=== PATIENT | female | born 2005 | race Caucasian/White ===

== ENCOUNTER 2025-05-22 19:24 | Observation (INO) ==
--- NOTE | 2025-05-22 20:08 | Emergency Department Note ---
Impression & Plan Chest pain, Hypokalemia, Elevated troponin, Exposure to carbon monoxide ED Provider Note NAME: GEORGIE JOHNSON AGE: 19 SEX: F : 2005 ARRIVES VIA: Walk-In INFORMANT: Patient ED PROVIDER(S): Aleksandr Harper DO CHIEF COMPLAINT: Carbon monoxide exposure HPI: Patient is a 19-year-old female who was at the [facility] for an hour. They were notified after the car monoxide alarm went out by the fire [place] that it was significantly elevated in house. She notes that she was having a headache and some chest pain and feels a little shaky. She denies any belly pain. No nausea, vomiting, or diarrhea. Denies any history of diabetes, hypertension, hyperlipidemia, CAD or sudden . No recent trips or travel, swelling of the calves coughing up blood or history of blood clots. ADDITIONAL HISTORY OBTAINED: Per HPI Chronic Medical/Social Conditions Affecting Care: Per HPI PAST MEDICAL HISTORY:See Below PAST SURGICAL HISTORY:See Below FAMILY HISTORY:See Below SOCIAL HISTORY:See Below HOME MEDICATIONS:See Below ALLERGIES:See Below VITALS:See Below PHYSICAL EXAMINATION: GENERAL: Sitting up in bed, alert, well appearing, well nourished, no distress, non-toxic EYE EXAM: normal conjunctiva. PERRL and EOM's grossly intact. OROPHARYNX: no exudate, no erythema, lips, buccal mucosa, and tongue normal and mucous membranes are moist NECK: supple, no nuchal rigidity, no adenopathy, non-tender LUNGS: Clear to auscultation. Normal chest wall mechanics HEART: no murmurs, S1 normal and S2 normal ABDOMEN: abdomen soft, non-tender, normo-active bowel sounds, no masses, no rebound or guarding. BACK: Back is symmetrical on inspection and there is no deformity, no midline tenderness, no CVA tenderness. SKIN: no rashes and no bruising UPPER EXTREMITIES: upper extremities are grossly normal. LOWER EXTREMITIES: No pitting edema. Calves are equal bilaterally NEURO EXAM: Normal sensorium, cranial nerves II-XII grossly intact, normal speech, no gross weakness of arms, no gross weakness of legs. MEDICAL DECISION MAKING: Patient is a 19-year-old female who presents ER for the above-stated complaint. IV was established and blood work was obtained. She was exposed to carbon monoxide and consequently referred in. IV was established blood work is obtained. Labs show no significant leukocytosis or anemia. Upon arrival she was placed on a nonrebreather. D-dimer was negative. Carboxyhemoglobin was only 2.5. CMP with an elevated troponin at 237. This trended down to 212. Lipase and LFTs were unremarkable. She is pain-free on repeat evaluation. EKG did show some nonspecific ST wave changes in the inferior leads. With the travel the dimer was obtained and was negative. She had no exertional activities today other than walking on the treadmill for an hour which she typically does. She never gets any exertional chest pain. She was recently in [place] at altitude and just flew back. I question if the elevated troponin is secondary to the strain from the altitude. I doubt that this is secondary to the carboxyhemoglobin as there were close to 20 people that presented and no one had an elevated carbon monoxide level. I do not think this is consistent with ACS. Did recommend admission and updated mom and discussed the case with the hospitalist for further evaluation management treatment. Patient was given IV fluids. Consults/Care Managements Discussions: Per [facility] Triage Nursing notes reviewed. Limited review of prior medical records performed Vital Signs: reviewed and remarkable for no significant abnormalities Differential diagnosis: Cardiac ischemia, aortic dissection, pulmonary embolism, pneumothorax, pneumonia, pericarditis, myocarditis, esophageal rupture, GERD, cholecystitis, pancreatitis, musculoskeletal, as well as other pathologies. ER treatment provided: See below Diagnostics interpreted by me include EKG and cardiac monitoring as listed below: -Cardiac Monitoring: An order was placed for continuous cardiac monitoring. The monitor shows a rate of 80 with sinus rhythm. -ECG: Sinus rhythm rate 88 Normal axis No PVCs Nonspecific ST wave changes in the inferior leads EKG #2 Sinus rhythm rate of 78 Right axis No PVCs QTc [address] wave changes in the inferior leads -Laboratory studies:Interpreted by me as stated above in MDM and shown below. Imaging studies: Xrays: As interpreted by me: Portable AP upright 1 view of the chest shows no focal M-Trate CTs show: none Procedures:none Critical Care: None Past Med/Surg History Problem List (Updated 05/23/25 @ 00:19 by Aleksandr Harper DO) Exposure to carbon monoxide (Acute) Chest pain (Acute) Elevated troponin (Acute) Hypokalemia (Acute) Carbon monoxide poisoning Medical History No pertinent past medical history Social History Smoking Status: Current every day smoker Tobacco Type: E-cigarettes / Vaping Preferred Language: Nepali Feels Safe at Home: Yes Allergies Allergies Allergy/AdvReac Type Severity Reaction Status Date / Time No Known Allergies Allergy Unverified 05/22/25 20:41 Home Meds Home Medications Medication Instructions Recorded Confirmed No Known Home Medications 05/22/25 05/22/25 Results & Data (ED) Vital Signs Vital Signs - 24 hr 05/22/25 19:33 05/22/25 21:44 05/22/25 21:45 Temperature 36.7 C Temperature Source Temporal Artery Scan Pulse Rate 86 Pulse Rate [Apical] 73 Respiratory Rate 16 20 Respiratory Effort / Characteristics Non-Labored Spontaneous Respiratory Depth Normal Respiratory Pattern Regular Blood Pressure 121/85 Blood Pressure [Right Arm] 116/56 L Blood Pressure Mean 97 Blood Pressure Mean [Right Arm] 76 Pulse Oximetry 98 98 99 Oxygen Delivery Method Room Air Room Air Room Air Oxygen Flow Rate Sepsis Recent Fever Within 48 Hours No Sepsis New/Unexplained Change in Mental Status N/A Sepsis Action Taken by Nursing No Action Required 05/22/25 21:45 05/22/25 22:18 05/22/25 22:45 Temperature Temperature Source Pulse Rate 82 67 Pulse Rate [Apical] Respiratory Rate 20 Respiratory Effort / Characteristics Respiratory Depth Respiratory Pattern Blood Pressure 105/77 Blood Pressure [Right Arm] Blood Pressure Mean 89 Blood Pressure Mean [Right Arm] Pulse Oximetry 99 99 Oxygen Delivery Method Room Air Room Air Oxygen Flow Rate 0 Sepsis Recent Fever Within 48 Hours Sepsis New/Unexplained Change in Mental Status Sepsis Action Taken by Nursing Laboratory Data 05/22/25 20:15 05/22/25 20:15 Lab Results 05/22/25 05/22/25 Range/Units 20:15 22:00 WBC 8.64 (4.8-10.8) K/ul RBC 4.28 (4.20-5.40) M/uL Hgb 12.7 (12.0-16.0) g/dl Hct 38.1 (37.0-47.0) % MCV 89.0 (80.0-100.0) fL MCH 29.7 (25.0-34.0) pg MCHC 33.3 (32.0-36.0) g/dL RDW Std Deviation 40.2 (36.4-46.3) fL RDW Coeff of Jory 12.4 (11.5-14.5) % Plt Count 297 (130-400) K/uL MPV 9.2 L (9.4-12.4) fL Immature Gran % (Auto) 0.2 % Neut % (Auto) 64.8 % Lymph % (Auto) 28.0 % [place] % (Auto) 6.1 % Eos % (Auto) 0.2 % Baso % (Auto) 0.7 % Neut # (Auto) 5.59 (1.40-6.50) K/uL Lymph # (Auto) 2.42 (1.20-3.40) K/uL [place] # (Auto) 0.53 (0.11-0.59) K/uL Eos # (Auto) 0.02 (0.00-0.50) K/uL Baso # (Auto) 0.06 (0.00-0.20) K/uL Immature Gran # (Auto) 0.02 (0.01-0.20) K/uL D-Dimer 340 (0-500) ug/L FEU Carboxyhemoglobin 2.5 % THgb Sodium 139 (136-145) mmol/L Potassium 3.2 L (3.5-5.1) mmol/L Chloride 102 (98-107) mmol/L Carbon Dioxide 28 (21-32) mmol/L Anion Gap 9 (3-11) BUN 16 (6-23) mg/dl Creatinine 0.93 (0.6-1.2) mg/dl Est Cr Clr Drug Dosing 84.0 ml/min eGFR 90.80 BUN/Creatinine Ratio 17.2 (10-20) Glucose 101 H (70-99(Fasting)) mg/dl Calcium 10.0 (8.6-10.3) mg/dl Total Bilirubin 0.5 (0.2-1.0) mg/dl AST 24 (13-39) U/L ALT 14 (7-52) U/L Alkaline Phosphatase 40 (34-104) U/L Total Creatine Kinase 133 (26-192) U/L Troponin I High Sens 237.6 H* 212.5 H* (0-14) pg/ml Total Protein 7.8 (6.0-8.3) gm/dl Albumin 4.7 (3.4-5.0) gm/dl Globulin 3.1 (2.5-4.0) gm/dl Albumin/Globulin Ratio 1.5 (0.9-2) Lipase 24 (11-82) U/L Administered Medications Discontinued Medications Sodium Chloride (Nss) 1,000 mls @ 999 mls/hr IV .Q1H1M ONE Stop: 05/22/25 22:47 Last Infusion: 05/22/25 23:07 Dose: Infused Documented By: Admin: 05/22/25 22:06 Dose: 999 mls/hr Documented By: NATHEN Potassium Chloride (Potassium Chloride Crtab 20 Meq Tabcr) 40 meq PO NOW STA Stop: 05/22/25 23:09 Last Admin: 05/22/25 23:37 Dose: 40 meq Documented By: NATHEN Imaging Data Radiologist's Impression: Chest X-Ray 05/22/25 20:04 Exam(s): XR CXR 1 VIEW EXAM: XR Chest, 1 View CLINICAL HISTORY: Chest pain, nonspecific. TECHNIQUE: Frontal view of the chest. COMPARISON: No relevant prior studies available. FINDINGS: Lungs: Unremarkable. No consolidation. The pulmonary vasculature demonstrates no significant radiographic abnormality. Pleural space: Unremarkable. No pneumothorax. No large pleural effusion. Heart: Unremarkable. No cardiomegaly. Mediastinum: No significant abnormality identified. The trachea is midline. Bones/joints: Unremarkable. No acute fracture. IMPRESSION: Normal chest radiograph. Electronically signed by: Lexx St MD 05/22/25 20:54 PM Discharge Plan Visit Data Chief Complaint: Carbon Monoxide Exposure Stated Complaint: CO EXPOSURE ED Provider: Aleksandr Harper Discharge Problem: Chest pain, Hypokalemia, Elevated troponin, Exposure to carbon monoxide Condition: Fair Forms Stand Alone Forms: [employer]glass Prescriptions Prescriptions: No Action No Known Home Medications Referrals Referrals: [facility] [Primary Care Provider] - Discharge Problem: Chest pain Qualifiers: Chest pain type: unspecified Qualified Code(s): R07.9 - Chest pain, unspecified
[2025-05-22 20:34] LABS: Hematocrit (blood only) 38.1 % (37.0-47.0); Hemoglobin 12.7 g/dl (12.0-16.0); Immature Granulocytes # (auto) 0.02 K/uL (0.01-0.20); Immature Granulocytes % (auto) 0.2 %; Mean Corpuscular Hemoglobin 29.7 pg (25.0-34.0); Mean Corpuscular Volume 89.0 fL (80.0-100.0); Platelet Count 297 K/uL (130-400); RDW Standard Deviation 40.2 fL (36.4-46.3); Red Blood Count 4.28 M/uL (4.20-5.40); White Blood Count 8.64 K/ul (4.8-10.8)
[2025-05-22 20:52] LABS: Alanine Aminotransferase 14.0 U/L (7-52); Albumin Globulin Ratio 1.5 (0.9-2); Albumin Level 4.7 gm/dl (3.4-5.0); Alkaline Phosphatase 40.0 U/L (34-104); Anion Gap 9.0 (3-11); Bilirubin,Total 0.5 mg/dl (0.2-1.0); Blood Urea Nitrogen 16.0 mg/dl (6-23); Calcium 10.0 mg/dl (8.6-10.3); Carbon Dioxide 28.0 mmol/L (21-32); Chloride 102.0 mmol/L (98-107); Creatinine Clr Calc Pharmacy 84.0 ml/min; Globulin 3.1 gm/dl (2.5-4.0); Glucose 101.0 mg/dl (70-99(Fasting)); Lipase 24.0 U/L (11-82); Potassium 3.2 mmol/L (3.5-5.1); Sodium 139.0 mmol/L (136-145); Total Protein 7.8 gm/dl (6.0-8.3)
--- NOTE | 2025-05-22 20:55 | XRay Report ---
Exam(s): XR CXR 1 VIEW EXAM: XR Chest, 1 View CLINICAL HISTORY: Chest pain, nonspecific. TECHNIQUE: Frontal view of the chest. COMPARISON: No relevant prior studies available. FINDINGS: Lungs: Unremarkable. No consolidation. The pulmonary vasculature demonstrates no significant radiographic abnormality. Pleural space: Unremarkable. No pneumothorax. No large pleural effusion. Heart: Unremarkable. No cardiomegaly. Mediastinum: No significant abnormality identified. The trachea is midline. Bones/joints: Unremarkable. No acute fracture. IMPRESSION: Normal chest radiograph. Electronically signed by: Lexx St MD 05/22/25 20:54 PM
[2025-05-22] MEDS: SODIUM CHLORIDE 0.9% 1,000 ML IV ONE (22:06)
[2025-05-22 22:14] LABS: Creatine Kinase 133.0 U/L (26-192)
--- NOTE | 2025-05-22 23:17 | History & Physical Report ---
Date of Service May 22, 2025 Assessment & Plan (1) Carbon monoxide poisoning: (2) Elevated troponin: (3) Hypokalemia: Plan 19 yo F admitted with carbon monoxide poisoning #Severe carbon monoxide poisoning with elevated troponin - Obs to med tele - Regular diet - VS per unit protocol - Serial HS trop, next due at 0400 - EKG in AM and PRN CP - TTE - Treat with HFNC O2 overnight to increase clearance of CO #Hypokalemia - K+ 3.2, replacement ordered - Trend level in AM VTE ppx - ambulation Above plan of care has been d/w Dr. Alvarado who will also see and evaluate this patient. Further orders will be implemented as clinically warranted. History of Present Illness Chief Complaint: Carbon monoxide poisoning Primary Care Provider: [facility] Mindy is a 19 yo F college student without any pmhx who presents for evaluation following carbon monoxide exposure. She reportedly was at a sorority and was there for about an hour. She began having a headache and some chest discomfort and was feeling shaky. They were informed by the fire department that the carbon monoxide levels were significantly elevated in the 500s and the patient was subsequently referred to the hospital for evaluation. She was treated transiently with O2. Her work up demonstrated an elevated HS trop of 237. EKG was NSR w/o acute ST-T wave changes. Repeat HS trop remains elevated at 212. She is currently chest pain free but due to her persistently elevated HS trop she has been referred to the hospital medicine team for admission. Allergies Allergy/AdvReac Type Severity Reaction Status Date / Time No Known Allergies Allergy Unverified 05/22/25 20:41 Home Medications Medication Instructions Recorded Confirmed Type No Known Home Medications 05/22/25 05/22/25 History Past Med/Surg History Problem List (Updated 05/23/25 @ 00:19 by Aleksandr Harper DO) Exposure to carbon monoxide (Acute) Chest pain (Acute) Elevated troponin (Acute) Hypokalemia (Acute) Carbon monoxide poisoning Medical History No pertinent past medical history Social History Smoking Status: Current every day smoker Tobacco Type: E-cigarettes / Vaping Hx Alcohol Use: Yes Hx Substance Use: No Preferred Language: Venezuelan Communication Ability: Effective Inclusion Manager Required: No Beliefs That Will Affect Care: None Current Living Situation: Other Current Living Situation Comment: lives with friends in apartment Other Information That Helps Us Care for You: No Feels Safe at Home: Yes Safety Concerns: Feels Safe At This Time Assistive Devices: None Review of Systems 2 Review of Systems: All systems reviewed and are unremarkable except as noted in HPI and below. Denies fever, chills, fatigue, nasal congestion, sore throat, cough, shortness of breath, palpitations, orthopnea, PND, abdominal pain, n/v/d, constipation, dysuria, hematuria, frequency, back pain, joint pain or swelling, easy bruising or bleeding, skin lesions or rashes. Physical Exam 2 Physical Exam: GENERAL: 19 yo Well-developed, well-nourished WF. No distress. EYES: EOMI. PERRLA. Anicteric. HENT: Moist mucous membranes. No cervical lymphadenopathy. LUNGS: Clear to auscultation bilaterally. No accessory muscle use. No W/R/R. CARDIOVASCULAR: Regular rate and rhythm. No M/G/R. No JVD. ABDOMEN: Soft, non-tender and non-distended. No palpable masses. Bowel sounds normoactive x 4 quad. EXTREMITIES: No edema. Non-tender. Peripheral pulses +2/4. NEUROLOGIC: A&O x3. No focal neurological deficits. CN II-XII grossly intact. PSYCHIATRIC: Cooperative. Appropriate mood and affect. SKIN: Warm, dry, intact. No rashes or lesions. Results & Data Results & Data Vital Signs (Past 12 Hours) Vital Signs Temp Pulse Pulse Resp BP BP Pulse Ox 05/22/25 22:18 82 05/22/25 21:45 99 05/22/25 21:45 99 05/22/25 21:44 73 20 116/56 L 98 05/22/25 19:33 36.7 C 86 16 121/85 98 O2 Del Method O2 Flow Rate 05/22/25 22:18 05/22/25 21:45 Room Air 0 05/22/25 21:45 Room Air 05/22/25 21:44 Room Air 05/22/25 19:33 Room Air Laboratory Results 05/22/25 20:15 05/22/25 20:15 HS trop 237 --> 212 Diagnostic Findings Chest X-Ray 05/22/25 20:04 Exam(s): XR CXR 1 VIEW EXAM: XR Chest, 1 View CLINICAL HISTORY: Chest pain, nonspecific. TECHNIQUE: Frontal view of the chest. COMPARISON: No relevant prior studies available. FINDINGS: Lungs: Unremarkable. No consolidation. The pulmonary vasculature demonstrates no significant radiographic abnormality. Pleural space: Unremarkable. No pneumothorax. No large pleural effusion. Heart: Unremarkable. No cardiomegaly. Mediastinum: No significant abnormality identified. The trachea is midline. Bones/joints: Unremarkable. No acute fracture. IMPRESSION: Normal chest radiograph. Electronically signed by: Lexx St MD 05/22/25 20:54 PM ECG Additional Comments: NSR w/o acute ST-T wave changes Code Status & VTE Plan Code Status Full code VTE Prophylaxis Plan VTE Prophylaxis will be ordered: No Reason for no VTE drug order: Treatment not indicated Supervising Physician Co-Signing Physician Notes Attending addendum: I have physically seen this patient, have supervised the MYLES's activities, and agree with the H&P unless as otherwise noted. Assessment and Plan: The patient is a 19-year-old female with no significant past medical history, who presents to the emergency department with a number of members of her sorority, with concerns regarding carbon monoxide poisoning. Carbon monoxide poisoning with elevated troponin- Initial troponin 237.6 with follow-up 212.5 Carboxyhemoglobin level 2.5 D-dimer is 340 Observation to telemetry for serial cardiac enzymes, serial EKG's, cardiac rhythm monitoring and a 2-D echocardiogram with Dopplers. Regular diet Differential including but not limited to: NSTEMI, CO poisoning, and myopericarditis, viral process, others High flow O2 overnight EKG with normal sinus rhythm at 78, rightward axis Consult cardiology Hypokalemia- Potassium 3.2 with replacement ordered Repeat laboratories in a.m. Magnesium level added to the ED labs PG Care Time/CCT Total # of Minutes Spent Total Time Spent with Patient: Total time spent is greater than 50% in coordination of care (as documented) at patient's floor/unit and/or counseling patient: 78 minutes Coding Level of Care Code 70757 INT INP/OBS CARE 3/75MIN Diagnoses Toxic effect of carbon monoxide, unintentional, initial encounter T58.91XA Encounter type: initial encounter Injury intent: accidental or unintentional Elevated troponin R79.89 Hypokalemia E87.6 (1) Carbon monoxide poisoning Encounter type: initial encounter Injury intent: accidental or unintentional Qualified Code(s): T58.91XA - Toxic effect of carbon monoxide from unspecified source, accidental (unintentional), initial encounter
[2025-05-22] MEDS: POTASSIUM CHLORIDE CRTAB 20 MEQ TABCR PO STA (23:37)
[2025-05-23] MEDS ORDERED: MELATONIN 3 MG TAB PO PRN (01:23)
[2025-05-23] MEDS ORDERED: ONDANSETRON INJ 2 MG/ML 2 ML VIAL IV PRN (01:23)
[2025-05-23] MEDS ORDERED: ACETAMINOPHEN 325 MG TAB PO PRN (01:23)
[2025-05-23] MEDS ORDERED: ALUMINUM/MAGNESIUM SUSP 30 ML UDC PO PRN (01:23)
[2025-05-23 04:52] LABS: Hematocrit (blood only) 31.2 % (37.0-47.0); Hemoglobin 10.2 g/dl (12.0-16.0); Immature Granulocytes # (auto) 0.01 K/uL (0.01-0.20); Immature Granulocytes % (auto) 0.2 %; Mean Corpuscular Hemoglobin 29.7 pg (25.0-34.0); Mean Corpuscular Volume 91.0 fL (80.0-100.0); Platelet Count 220 K/uL (130-400); RDW Standard Deviation 41.8 fL (36.4-46.3); Red Blood Count 3.43 M/uL (4.20-5.40); White Blood Count 5.68 K/ul (4.8-10.8)
[2025-05-23 05:05] LABS: Anion Gap 3.0 (3-11); Blood Urea Nitrogen 15.0 mg/dl (6-23); Calcium 8.9 mg/dl (8.6-10.3); Carbon Dioxide 26.0 mmol/L (21-32); Chloride 109.0 mmol/L (98-107); Creatinine Clr Calc Pharmacy 85.9 ml/min; Glucose 101.0 mg/dl (70-99(Fasting)); Magnesium 2.0 mg/dl (1.7-2.4); Potassium 3.6 mmol/L (3.5-5.1); Sodium 138.0 mmol/L (136-145)
[2025-05-23 07:47] VITALS: RESP 14
--- NOTE | 2025-05-23 10:03 | Cardiology Consultation ---
Date of Consultation May 23, 2025 Assessment & Plan (1) Elevated troponin: (2) Chest pain: (3) Carbon monoxide poisoning: Plan ASSESSMENT/PLAN: 1. Elevated troponin: Likely related to carbon monoxide poisoning. Echo unremarkable. Symptoms quickly resolved with supplemental O2. No further cardiac testing necessary at this time. 2. Chest pain: Likely related to carbon monoxide poisoning. Resolved with supplemental oxygen. 3. Carbon Monoxide poisoning: As per primary hospital service. 4. Disposition: Cardiology will sign off at this time. Please call with further questions/concerns. Discussed with Dr. Rojo of the hospitalist service. History of Present Illness Reason for Consultation: elevated troponin Requesting Physician: Dr. Alvarado Attending Physician: Aleksandr Rojo, History of Present Illness Ms. Martinez is a very pleasant 19-year-old female with no significant past medical history. She was hospitalized on 05/22/2025 with carbon monoxide poisoning. She had been in her sorority house, specifically in the basement for some time where carbon monoxide levels were rising. An alarm went off signaling elevated levels. She developed headache and substernal chest tightness which was constant for approximately 60 to 90 minutes. It resolved with supplemental oxygen. She was seen early this afternoon and states that she felt back to baseline. She denied any further headache, chest pain, and also denies shortness of breath, syncope, near syncope, palpitations, edema, melena, hematochezia, hematuria, or other bleeding. She was hoping to be discharged today. Prior to this event, she exercises 5 to 6 days/week on a treadmill, for 5 miles each time and tolerates it well without chest pain or shortness of breath. Review of systems: As above. Family history: No known premature CAD or sudden cardiac . Father has dyslipidemia. Social history: She occasionally vapes. Occasional alcohol. No drugs. 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 She is from [place], [place] and lives with her mother, father and 2 older sisters. 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 She was unaccompanied. Allergies Allergy/AdvReac Type Severity Reaction Status Date / Time No Known Allergies Allergy Unverified 05/22/25 20:41 Home Medications Medication Instructions Recorded Confirmed Type No Known Home Medications 05/22/25 05/22/25 History Patient History Medical History No pertinent past medical history Social History Smoking Status: Current every day smoker Tobacco Type: E-cigarettes / Vaping Hx Alcohol Use: Yes Hx Substance Use: No Preferred Language: Argentine Communication Ability: Effective Hide Or Skin Buffer Required: No Beliefs That Will Affect Care: None Current Living Situation: Other Current Living Situation Comment: lives with friends in apartment Feels Safe at Home: Yes Assistive Devices: None Physical Exam Physical Exam: Gen.: No acute distress. Alert and oriented. HEENT: Anicteric sclera. Neck: No JVD. No hepatojugular reflux. Normal carotid upstrokes. Cardiac: Regular. Normal S1-S2. No murmurs, rubs, or gallops. Pulmonary: Clear to auscultation bilaterally without wheezes, rales, or rhonchi. Abdomen: Soft, nondistended, nontender, with normoactive bowel sounds. No bruits noted. Extremities: 2+ radial pulses bilaterally. 2+ posterior tibialis pulses bilaterally. No edema or cyanosis. Results & Data Vital Signs (Past 12 Hours) Vital Signs Temp Pulse Pulse Pulse Resp BP BP 05/23/25 07:36 54 L 05/23/25 07:00 36.7 C 59 L 14 05/23/25 03:23 36.8 C 67 18 99/60 L 05/23/25 00:34 62 05/23/25 00:33 36.8 C 64 16 05/23/25 00:13 69 20 05/22/25 22:45 67 20 105/77 05/22/25 22:18 82 BP Pulse Ox O2 Del Method O2 Flow Rate 05/23/25 07:36 05/23/25 07:00 92/64 L 98 Non-rebreather 15 05/23/25 03:23 97 Non-rebreather 15 05/23/25 00:34 05/23/25 00:33 98/63 L 99 Non-rebreather 15 05/23/25 00:13 112/72 100 Non-rebreather 15 05/22/25 22:45 99 Room Air 05/22/25 22:18 Laboratory Results Laboratory Results - last 24 hr 05/22/25 05/22/25 05/23/25 20:15 22:00 04:09 WBC 8.64 5.68 RBC 4.28 3.43 L Hgb 12.7 10.2 L Hct 38.1 31.2 L MCV 89.0 91.0 MCH 29.7 29.7 MCHC 33.3 32.7 RDW Std Deviation 40.2 41.8 RDW Coeff of Jory 12.4 12.6 Plt Count 297 220 MPV 9.2 L 9.4 Immature Gran % (Auto) 0.2 0.2 Neut % (Auto) 64.8 42.7 Lymph % (Auto) 28.0 47.0 [place] % (Auto) 6.1 8.5 Eos % (Auto) 0.2 0.9 Baso % (Auto) 0.7 0.7 Neut # (Auto) 5.59 2.43 Lymph # (Auto) 2.42 2.67 [place] # (Auto) 0.53 0.48 Eos # (Auto) 0.02 0.05 Baso # (Auto) 0.06 0.04 Immature Gran # (Auto) 0.02 0.01 D-Dimer 340 Carboxyhemoglobin 2.5 Sodium 139 138 Potassium 3.2 L 3.6 Chloride 102 109 H Carbon Dioxide 28 26 Anion Gap 9 3 BUN 16 15 Creatinine 0.93 0.91 Est Cr Clr Drug Dosing 84.0 85.9 eGFR 90.80 93.20 BUN/Creatinine Ratio 17.2 16.5 Glucose 101 H 101 H Calcium 10.0 8.9 Magnesium 2.0 Total Bilirubin 0.5 AST 24 ALT 14 Alkaline Phosphatase 40 Total Creatine Kinase 133 Troponin I High Sens 237.6 H* 212.5 H* 54.3 H* D Total Protein 7.8 Albumin 4.7 Globulin 3.1 Albumin/Globulin Ratio 1.5 Lipase 24 Diagnostic Findings Labs reviewed and notable for elevated high-sensitivity troponin with peak level 237 on presentation and then trending downward. Normal D-dimer, normal potassium, normal renal function, normal magnesium level, normal transaminase levels, mild anemia. Chest x-ray report reviewed from 05/22/2025: Normal chest x-ray per radiology. Chest x-ray image personally reviewed. No infiltrate. No pleural effusion. History and physical report reviewed. ECGs personally reviewed: ECG 05/22/2025 at 2011: Sinus rhythm with sinus arrhythmia. 88 bpm. ECG 05/22/2025 at 2158: Sinus rhythm 78 bpm. ECG 05/23/2025 6:26 AM: Sinus rhythm with sinus arrhythmia 61 bpm. ECHO 05/23/25: 1. Normal left ventricular size and systolic function. EF 60-65%. No regional wall motion abnormalities. No left ventricular hypertrophy. Normal diastolic function. 2. Normal right ventricular size and systolic function. 3. No significant valvular abnormalities. 4. Normal estimated right ventricular systolic pressure. 5. No prior study available for comparison. Telemetry reviewed: Sinus rhythm. No arrhythmia. Medications Administered Current Inpatient Medications Acetaminophen (Acetaminophen 325 Mg Tab) 650 mg PO Q4H PRN PRN Reason: Pain or Fever Stop: 06/22/25 01:22 Al Hydrox/Mg Hydrox/Simethicone (Aluminum/Magnesium Susp 30 Ml Udc) 15 ml PO Q4H PRN PRN Reason: Dyspepsia Stop: 06/22/25 01:22 Melatonin (Melatonin 3 Mg Tab) 3 mg PO HS PRN PRN Reason: Sleep Stop: 06/22/25 01:22 Ondansetron HCl (Ondansetron Inj 2 Mg/Ml 2 Ml Vial) 4 mg IV Q6H PRN PRN Reason: Nausea Stop: 06/22/25 01:22 PG Care Time/CCT Total # of Minutes Spent Total Time Spent with Patient: Total time spent is greater than 50% in coordination of care (as documented) at patient's floor/unit and/or counseling patient: Coding Level of Care Code 31977 INT INP/OBS CARE 3/75MIN Diagnoses Elevated troponin R79.89 Chest pain R07.9 Chest pain type: unspecified Toxic effect of carbon monoxide, unintentional, initial encounter T58.91XA Encounter type: initial encounter Injury intent: accidental or unintentional (2) Chest pain Chest pain type: unspecified Qualified Code(s): R07.9 - Chest pain, unspecified (3) Carbon monoxide poisoning Encounter type: initial encounter Injury intent: accidental or unintentional Qualified Code(s): T58.91XA - Toxic effect of carbon monoxide from unspecified source, accidental (unintentional), initial encounter
[2025-05-23 10:45] VITALS: TEMP 97.9; O2SAT 100
--- NOTE | 2025-05-23 11:19 | XCELERA ---
[id number]
[2025-05-23 15:08] VITALS: BP 92/64; PULSE 68
--- NOTE | 2025-05-23 16:59 | Discharge Summary ---
Discharge Summary Date of Service May 23, 2025 Principal Dx & Hospital Course #1 = Principal Diagnosis (1) Carbon monoxide poisoning: (2) Elevated troponin: (3) Hypokalemia: Plan 19 yo F admitted with carbon monoxide poisoning #Severe carbon monoxide poisoning with elevated troponin - Symptoms quite consistent with carbon monoxide poisoning. Elevated troponin likely demand myocardial ischemia from CO displacing O2 on hemoglobin and creating a low oxygen environment for her myocardium. Discussed that her carbon monoxide level was lower than what I would expect for her symptoms, but there was no other explanation, no other concerning symptomsand so I discussed with the patient I suspect her CO level was probably already lower by the time she had labs drawn in the ER than it was at peak. Fortunately the demand ischemia seems very mild, her echo was very reassuring. Safe/stable for home. Cardiology input appreciated. Notes For Next Care Provider Medication Changes From Visit none Admission HPI Per Admitting Provider Mindy is a 19 yo F college student without any pmhx who presents for evaluation following carbon monoxide exposure. She reportedly was at a sorority and was there for about an hour. She began having a headache and some chest discomfort and was feeling shaky. They were informed by the fire department that the carbon monoxide levels were significantly elevated in the 500s and the patient was subsequently referred to the hospital for evaluation. She was treated transiently with O2. Her work up demonstrated an elevated HS trop of 237. EKG was NSR w/o acute ST-T wave changes. Repeat HS trop remains elevated at 212. She is currently chest pain free but due to her persistently elevated HS trop she has been referred to the hospital medicine team for admission. Discharge Exam In general she is awake and alert pleasant no distress. HEENT normocephalic atraumatic mucous membranes moist. Breathing unlabored no accessory muscle use good effort. Skin without rashes pallor or icterus. Neuro without focal deficits. Labs and diagnostics noted. Updated Medication List Medication Instructions Recorded Confirmed Type No Known Home Medications 05/22/25 05/22/25 History Hospital Stay Data Consultations 05/22/25 21:52 ED Decision to Admit Stat 05/23/25 04:40 Consult Cardiology Routine Pending Results Patient Have Any Pending Studies at Discharge: No Discharge Instructions Given to Patient (Per Discharging Provider) You were seen in the emergency department due to carbon monoxide exposure. Your carboxyhemoglobin level (the amount of carbon monoxide binding to your blood) was normal, however, your heart proteins (troponin) were elevated. For a full and complete evaluation, we completed an ultrasound of your heart, which looked normal. Your troponin was most likely elevated due to the acute carbon monoxide exposure. Please have [facility] check your hemoglobin levels in a few weeks and follow with your PCP with any questions. Thank you for allowing us to participate in your care. Total Time Total Time Spent Total Time Spent (In Minutes): <30
--- NOTE | 2025-05-23 16:59 | Billing Data ---
Date of Service May 23, 2025 Coding Level of Care Code 39962 IN/OBS DISCH 30 MIN/LESS
--- NOTE | 2025-05-24 14:05 | Electrocardiogram Report ---
Test Reason : Blood Pressure : */* mmHG Vent. Rate : 88 BPM Atrial Rate : 88 BPM P-R Int : 122 ms QRS Dur : 86 ms QT Int : 374 ms P-R-T Axes : 70 77 18 degrees QTcB Int : 452 ms Normal sinus rhythm with sinus arrhythmia Normal ECG No previous ECGs available Confirmed by Grady Kraft ([id number]) on 05/24/2025 2:04:38 PM Referred By: REFERRED SELF Confirmed By: Grady Kraft
--- NOTE | 2025-05-24 14:05 | Electrocardiogram Report ---
Test Reason : Blood Pressure : */* mmHG Vent. Rate : 78 BPM Atrial Rate : 78 BPM P-R Int : 138 ms QRS Dur : 86 ms QT Int : 394 ms P-R-T Axes : 59 92 24 degrees QTcB Int : 449 ms Normal sinus rhythm Rightward axis Borderline ECG When compared with ECG of 22-May-2025 20:11, No significant change was found Confirmed by Grady Kraft ([id number]) on 05/24/2025 2:04:52 PM Referred By: REFERRED SELF Confirmed By: Grady Kraft
--- NOTE | 2025-05-30 11:58 | Electrocardiogram Report ---
Test Reason : Blood Pressure : */* mmHG Vent. Rate : 61 BPM Atrial Rate : 61 BPM P-R Int : 140 ms QRS Dur : 94 ms QT Int : 458 ms P-R-T Axes : 66 94 49 degrees QTcB Int : 461 ms Normal sinus rhythm with sinus arrhythmia Rightward axis Borderline ECG When compared with ECG of 22-May-2025 21:58, No significant change was found Confirmed by Hank Lombardi ([id number]) on 05/30/2025 11:58:07 AM Referred By: REFERRED SELF Confirmed By: Hank Lombardi
== END 2025-05-23 15:22 | disposition home or self-care (01) ==
LOC: 2N 19:24 → ED 19:24 → SUATTDRO 23:07 → 2N 05-23 00:17